=== PATIENT | male | born 1980 | race Caucasian/White ===

== ENCOUNTER 2023-09-12 01:33 | Emergency (ER) | payer MEDICAID ==
[~2023-09-12] VITALS: Ht 172.7 cm; Wt 105.0 kg
[2023-09-12] MEDS ORDERED: MORPHINE SULFATE 4 MG/ML CPJ (NOT FOR IM USE) IV STA (01:49)
[2023-09-12] MEDS ORDERED: ONDANSETRON HCL 4MG/2ML INJ IV STA (01:49)
[2023-09-12] MEDS ORDERED: LIDOCAINE HCL 1% 20ML VIAL (Pyxis) INJ INFIL ONE (02:00)
[2023-09-12] MEDS ORDERED: CEFAZOLIN 1000MG PREMIX 50 ML IV ONE (02:00)
[2023-09-12] MEDS ORDERED: SODIUM CHLORIDE 0.9% 1,000 ML IV ONE (02:00)
[2023-09-12] MEDS ORDERED: TETANUS, DIPHTHERIA, PERTUSSIS VAC/PF 0.5ML (>10YR OLD) IM ONE (02:00)
[2023-09-12] MEDS ORDERED: BACITRACIN ZINC OINT UDPKT TOP ONE (04:30)
[2023-09-12] MEDS ORDERED: ONDANSETRON HCL 4MG/2ML INJ IV ONE (04:30)
[2023-09-12] MEDS ORDERED: PROPOFOL 200MG/20ML VIAL IV ONE (04:30)
[2023-09-12] MEDS ORDERED: LIDOCAINE HCL/EPINEPHRINE 1%-EPI 1:100,000 20 ML VIAL INFIL ONE (04:30)
[2023-09-12] MEDS ORDERED: LIDOCAINE HCL/EPINEPHRINE 1%-EPI 1:100,000 20 ML VIAL INFIL NR (04:45)
[2023-09-12 04:54] VITALS: TEMP 98.7; O2SAT 96
[2023-09-12] MEDS ORDERED: IBUP-2029 MT (06:08)
[2023-09-12 06:40] VITALS: BP 110/72; PULSE 97; RESP 18
== END 2023-09-12 06:40 | disposition home or self-care (01) ==
LOC: ER 01:51
DX: S01.01XA Laceration without foreign body of scalp, initial encounter (principal); S43.005A Unspecified dislocation of left shoulder joint, initial encounter; R51.9 Headache, unspecified; W18.30XA Fall on same level, unspecified, initial encounter; Y93.89 Activity, other specified; Y92.89 Other specified places as the place of occurrence of the external cause; Y99.8 Other external cause status
CPT/HCPCS: 71045; 73030; 70450; 70486; 72125; 90715; 12002; 23650; 90471; 96361; 96365; 96375; 99152; 99285; J0690; J3490; J2405; J2704; J2270; J7030; Z7610